=== PATIENT | male | born 2000 | race Caucasian/White ===

== ENCOUNTER 2025-04-02 18:00 | Emergency (ER) | payer SELFPAY ==
[~2025-04-02] VITALS: Ht 172.7 cm; Wt 89.1 kg
[2025-04-02 22:21] VITALS: BP 129/81; TEMP 98.2; O2SAT 97
== END 2025-04-02 22:29 | disposition home or self-care (01) ==
LOC: M ED 18:00
DX: S46.911A Strain of unspecified muscle, fascia and tendon at shoulder and upper arm level, right arm, initial encounter (principal); Y92.9 Unspecified place or not applicable; Y93.9 Activity, unspecified; Y99.9 Unspecified external cause status